=== PATIENT | male | born 1985 | race Caucasian/White ===

== ENCOUNTER 2018-03-10 00:18 | Emergency (ER) | payer BC, OTHER ==
[2018-03-10] MEDS: HYDROCODONE/APAP (5/325) TAB PO (01:32)
[2018-03-10 01:36] LABS: URINE BLOOD (Dip) POC Negative (NEGATIVE); URINE GLUCOSE (Dip) POC Negative (NEGATIVE); URINE KETONES (Dip) POC Negative (NEGATIVE); URINE LEUKOCYTE EST (Dip) POC 1+ (NEGATIVE); URINE NITRITE (Dip) POC Negative (NEGATIVE); URINE TOTAL PROTEIN POC Negative (NEGATIVE)
== END 2018-03-10 01:53 | disposition home or self-care (01) ==
LOC: FTE 00:18
DX: N30.00 Acute cystitis without hematuria (principal); M79.10 Myalgia, unspecified site; F17.210 Nicotine dependence, cigarettes, uncomplicated
CPT/HCPCS: 81003; 99283